=== PATIENT | female | born 1970 | race Hispanic/Latino ===

== ENCOUNTER 2024-08-28 14:43 | Emergency (ER) | payer BC ==
[~2024-08-28] VITALS: Ht 157.5 cm; Wt 75.3 kg
[2024-08-28 15:24] LABS: BASOPHILS # (AUTO) 0.06 K/uL (0.00-0.20); BASOPHILS % (AUTO) 0.7 % (0.0-5.0); EOSINOPHILS # (AUTO) 0.13 K/uL (0.00-0.70); EOSINOPHILS % (AUTO) 1.4 % (0.0-8.0); HEMATOCRIT 39.2 % (36-48); IMMATURE GRANULOCYTE ABSOLUTE 0.02 K/uL (0-1); LYMPHOCYTES % (AUTO) 43.2 % (21.0-51.0); MEAN CORPUSCULAR HEMOGLOBIN 31.1 pg (27.0-33.0); MEAN CORPUSCULAR HGB CONC 34.2 g/dL (32.0-36.0); MONOCYTES # (AUTO) 0.8 K/uL (0.1-1.0); MONOCYTES % (AUTO) 9.2 % (3.0-13.0); NEUTROPHILS # (AUTO) 4.2 K/uL (1.8-7.7); NEUTROPHILS % (AUTO) 45.3 % (40.0-77.0); PLATELET COUNT (AUTO) 239 K/uL (130-400); RED BLOOD CELL COUNT(AUTO) 4.31 MIL/uL (4.00-5.50); RED CELL DISTRIBUTION WIDTH 11.8 % (11.0-15.5); WHITE BLOOD COUNT (AUTO) 9.2 K/uL (4.8-10.8)
[2024-08-28 15:48] LABS: ALBUMIN 3.7 g/dL (3.5-5.0); BILIRUBIN,DIRECT 0.1 mg/dL (0.0-0.3); BILIRUBIN,TOTAL 0.4 mg/dL (0.2-1.0); CREATININE 0.9 mg/dL (0.5-1.0); POTASSIUM 4.1 mmol/L (3.5-5.1); TOTAL PROTEIN, SERUM 8.3 g/dL (6.0-8.3)
[2024-08-28] MEDS: INSULIN humuLIN R 100 UNIT/ML 3ML IV ONE (16:17)
[2024-08-28] MEDS: 0.9%NACL 1000ML 1,000 ML IV ONE (16:18)
--- NOTE | 2024-08-28 16:32 | HMCIMG ---
US ABDOMINAL RUQ\E\LTD HISTORY: Right upper quadrant pain COMPARISON: None TECHNIQUE: Right upper quadrant abdominal ultrasound study was performed. FINDINGS: Liver measures 14.3 cm. The visualized portion of the pancreas is within normal limits. Liver is echogenic consistent with liver parenchymal disease. No gallstone is seen. Common duct measures 3 mm. No evidence of gallbladder wall thickening is seen. Right kidney measures 9.3 x 5.2 x 5.3 cm. No hydronephrosis is seen of the right kidney. IMPRESSION: 1. No gallstones or ductal dilatation is seen. 2. No hydronephrosis is seen.
[2024-08-28 16:36] LABS: ADD UA MICROSCOPIC YES; APPEARANCE,URINE CLEAR (CLEAR); BILIRUBIN,URINE NEGATIVE (NEGATIVE); COLOR,URINE LIGHT-YELLOW (YELLOW); GLUCOSE, URINE (UA) >=1000 mg/dL (NEGATIVE); KETONES,URINE 10 mg/dL (NEGATIVE); LEUKOCYTE ESTERASE ,URINE 75 Leu/uL (NEGATIVE); NITRATE,URINE NEGATIVE (NEGATIVE); OCCULT BLOOD,URINE NEGATIVE (NEGATIVE); PROTEIN,URINE NEGATIVE (NEGATIVE); UROBILINOGEN,URINE 0.2 mg/dL (0.2-1.0)
[2024-08-28 16:39] LABS: BACTERIA,URINE RARE /HPF (None Seen); MUCUS,URINE RARE LPF (None Seen); SQUAMOUS EPITHELIAL CELL,UR RARE /HPF (0-2)
--- NOTE | 2024-08-28 16:45 | ERN ---
ED Note History of Present Illness Stated Complaint: ABD PAIN Chief Complaint: Abdominal Pain Time Seen by MD: 14:55 Time Seen by Midlevel: 15:00 Dictation: 53-year-old female with a history of hypertension and diabetes sent here for PCP's office for right upper quadrant pain rule out any cholecystitis. Patient states the pain started this morning. Denies any nausea or vomiting. Allergies: Coded Allergies: No Known Drug Allergies (Unverified Allergy, Unknown, 08/28/24) Home Meds Active Scripts Cephalexin Monohydrate (Keflex) 500 Mg Cap, 500 MG PO QID for 7 Days, #28 CAP Prov:CONSTANTINE STOREY [employer]ODUCTION MAINTENANCE MECH[employer]IC 08/28/24 Past Medical History Past Medical History: Constipation, Diabetes-Type II Surgical History: BTL, Review of System Dictation Constitutional: Negative for fever,chills, and weight loss Eyes: Negative for injury, pain,redness, and discharge ENT: Negative for injury,pain or swelling Cardiovascular: Negative for chest pain, palpitations, and edema Respiratory: Negative for shortness of breath, cough, and wheezing, Abdomen/GI: Complaining of right upper quadrant pain and epigastric pain Back: Negative for injury and pain : Negative for injury, bleeding and discharge MS/Extremity: Negative for injury and deformity Skin: Negative for rash, and discoloration Neuro: Negative for headache, weakness, numbness, tingling, and seizure Psych: Negative for suicide ideation, homicidal ideation, and hallucinations Review of Systems: was completed Initial Vital Sign VS Vital Signs Date Time Temp Pulse Resp B/P (MAP) Pulse Ox O2 Delivery O2 Flow Rate FiO2 08/28/24 14:51 98.4 77 18 127/81 99 Room Air 0 08/28/24 15:37 21 Physical Exam Dictation General: awake, alert, NAD Head/Face: Normocephalic, atraumatic Eyes: PERRL, EOMI, vision at baseline ENT: oral cavity clear, TMs clear, no signs of infection Neck: Trachea midline, supple, no nuchal rigidity Cardiovascular: RRR, normal S1/S2, No MRGs, no JVD Respiratory: CTAB, no respiratory distress, No rales or wheezes Abdomen: Soft, non-tender, non-distended, normal bowel sounds, no guarding or rebound. Skin: Warm, dry, normal turgor, no rash MS/Extremity: Pulses equal, no cyanosis, neurovascular intact, FROM Neuro: COAx4, GCS 15, strength 5/5, CN 2-12 intact, normal cerebellar exam, normal gait, Psych: Normal behavior, mood, and affect normal Results (Laboratory/Radiology) Laboratory/Radiology Laboratory Tests Test 08/28/24 15:13 08/28/24 15:41 White Blood Count 9.2 K/uL (4.8-10.8) Red Blood Count 4.31 MIL/uL (4.00-5.50) Hemoglobin 13.4 g/dL (12.0-16.0) Hematocrit 39.2 % (36-48) Mean Corpuscular Volume 91.0 fL (79-99) Mean Corpuscular Hemoglobin 31.1 pg (27.0-33.0) Mean Corpuscular Hemoglobin Concent 34.2 g/dL (32.0-36.0) Red Cell Distribution Width 11.8 % (11.0-15.5) Platelet Count 239 K/uL (130-400) Mean Platelet Volume 12.7 fL (7.5-10.5) H Immature Granulocyte % (Auto) 0.2 % (0-1) Neutrophils (%) (Auto) 45.3 % (40.0-77.0) Lymphocytes (%) (Auto) 43.2 % (21.0-51.0) Monocytes (%) (Auto) 9.2 % (3.0-13.0) Eosinophils (%) (Auto) 1.4 % (0.0-8.0) Basophils (%) (Auto) 0.7 % (0.0-5.0) Neutrophils # (Auto) 4.2 K/uL (1.8-7.7) Lymphocytes # (Auto) 4.0 K/uL (1.0-4.8) Monocytes # (Auto) 0.8 K/uL (0.1-1.0) Eosinophils # (Auto) 0.13 K/uL (0.00-0.70) Basophils # (Auto) 0.06 K/uL (0.00-0.20) Absolute Immature Granulocyte (auto 0.02 K/uL (0-1) Nucleated Red Blood Cells 0.0 % (0.0-0.19) Sodium Level 134 mmol/L (136-145) L Potassium Level 4.1 mmol/L (3.5-5.1) Chloride Level 97 mmol/L (101-111) L Carbon Dioxide Level 31 mmol/L (21-32) Blood Urea Nitrogen 18 mg/dL (7-18) Creatinine 0.9 mg/dL (0.5-1.0) Glomerular Filtration Rate Calc 77 mL/min (>90) Random Glucose 515 mg/dL (70-105) *H Total Calcium 9.0 mg/dL (8.5-10.1) Total Bilirubin 0.4 mg/dL (0.2-1.0) Direct Bilirubin 0.1 mg/dL (0.0-0.3) Aspartate Amino Transf (AST/SGOT) 17 U/L (10-37) Alanine Aminotransferase (ALT/SGPT) 28 U/L (12-78) Alkaline Phosphatase 157 U/L (50-136) H Total Protein 8.3 g/dL (6.0-8.3) Albumin 3.7 g/dL (3.5-5.0) Lipase 39 U/L (16-77) Urine Color LIGHT-YELLOW (YELLOW) Urine Appearance CLEAR (CLEAR) Urine pH 5.0 (5.0-8.0) Urine Specific [place] 1.036 (1.001-1.031) Urine Protein NEGATIVE mg/dL (NEGATIVE) Urine Glucose (UA) >=1000 mg/dL (NEGATIVE) H Urine Ketones 10 mg/dL (NEGATIVE) H Urine Occult Blood NEGATIVE (NEGATIVE) Urine Nitrate NEGATIVE (NEGATIVE) Urine Bilirubin NEGATIVE mg/dL (NEGATIVE) Urine Urobilinogen 0.2 mg/dL (0.2-1.0) Urine Leukocyte Esterase 75 Cal/uL (NEGATIVE) H Urine RBC 6-10 /HPF (0-1) H Urine WBC 11-25 /HPF (0-1) H Urine Squamous Epithelial Cells RARE /HPF (0-2) Urine Bacteria RARE /HPF (None Seen) Labs Reviewed?: Yes EKG Comment: EKGs done at 4:48 p.m.. Sinus rhythm at a rate of 73. No STEMI interpreted by MARIE BENTLEY. Ultrasound Comment: [place] [id number] [place] [id number] IMAGING REPORT Signed PATIENT: VENKAT CARROLL MR#: [id number] : 1970 SEX: F AGE: 53 LOCATION: [facility] ORDER 03 STATUS: REG ER REPORT#: [id number] SERVICE 03 REASON: ruq pain, n/v ORDERING PHYSICIAN: CONSTANTINE STOREY NP PROCEDURE: ABDRUQLTD - US ABDOMINAL RUQ\LTD US ABDOMINAL RUQ\E\LTD HISTORY: Right upper quadrant pain COMPARISON: None TECHNIQUE: Right upper quadrant abdominal ultrasound study was performed. FINDINGS: Liver measures 14.3 cm. The visualized portion of the pancreas is within normal limits. Liver is echogenic consistent with liver parenchymal disease. No gallstone is seen. Common duct measures 3 mm. No evidence of gallbladder wall thickening is seen. Right kidney measures 9.3 x 5.2 x 5.3 cm. No hydronephrosis is seen of the right kidney. IMPRESSION: 1. No gallstones or ductal dilatation is seen. 2. No hydronephrosis is seen. DICTATED BY: CHRISTINE MINOR MD DATE: 08/28/24 1627 ELECTRONICALLY SIGNED BY: CHRISTINE MINOR MD DATE: 08/28/24 1632 ED Course ED Course Orders Procedure Category Date Status Time Cbc With Differential LAB 08/28/24 Complete 15:04 Basic Metabolic Panel LAB 08/28/24 Complete 15:04 Lipase LAB 08/28/24 Complete 15:04 Hepatic Function Panel LAB 08/28/24 Complete 15:04 Us Abdominal Ruq\Ltd US 08/28/24 Resulted 15:04 Urinalysis Profile LAB 08/28/24 Complete 15:48 0.9%Nacl 1000ml (Ns PHA 08/28/24 Complete 1000ml) 16:30 Insulin Regular, PHA 08/28/24 Complete Human 3ml (Humulin R 16:30 Culture Urine JOSE GUADALUPE 08/28/24 Complete 16:36 12 Lead Ekg Tracing- EKG 08/28/24 Resulted Technical 16:45 Ceftriaxone 1g Vial PHA 08/28/24 Complete (Rocephine 1g Inj) 17:03 Current Medications Medications (Trade) Dose Ordered Sig/Ramon Route PRN Reason Start Time Stop Time Status Last Admin Dose Admin Ceftriaxone Sodium (ROCEphine 1G INJ) 1 gm ONCE STAT IVPB 08/28/24 17:03 08/28/24 17:06 DC 08/28/24 17:12 Insulin Human Regular (humuLIN R 100 UNIT/ML 3ML) 7 unit ONCE ONCE IV 08/28/24 16:30 08/28/24 16:31 DC 08/28/24 16:17 Sodium Chloride 1,000 ml @ 0 mls/hr Q0M ONCE IV 08/28/24 16:30 08/28/24 16:31 DC 08/28/24 16:18 Vital Signs Date Time Temp Pulse Resp B/P (MAP) Pulse Ox O2 Delivery O2 Flow Rate FiO2 08/28/24 17:15 98.4 64 16 104/71 99 Room Air* 0 21 08/28/24 15:37 70 16 124/63 99 Room Air* 0 21 08/28/24 14:51 98.4 77 18 127/81 99 Room Air 0 Medical Decision Making MDM MDM: 53-year-old female with a history of hypertension and diabetes sent here for PCP's office for right upper quadrant pain rule out any cholecystitis. Patient states the pain started this morning. Denies any nausea or vomiting. Chemistry unremarkable. Only hyperglycemia of greater than 500. Serum carbon dioxide within normal range. No suspicion for DKA. Gave fluids and 7 units of insulin. Blood sugar nose in the 300s. Patient states she has has not been compliant with her medications. No transaminitis, lipase within normal range. CBC shows no leukocytosis no anemia, no thrombocytopenia. Ultrasound shows no gallbladder stones. Discussed findings with the patient. Discussed with the patient needs to be compliant with her medications and follow up with her PCP in 1-2 days. Differential diagnosis: Cholecystitis, pancreatitis, biliary colic, gastritis, PUD Rationale: Tests considered and ordered secondary to shared decision making include: Previous outside records reviewed: Old ER visits. Risk of complication and/or morbidity or mortality of patient management: None Medications-Per medication reconciliation Need for hospitalization: Patient does not meet criteria for hospitalization. Need for emergency major/minor surgery: No There are no social concerns with this patient. Prescription drug management Prescriptions will include symptomatic care Patient's prior external medical records from other ER visits were reviewed by me as indicated. Prior testing and results from previous visits were reviewed. Prior tests were taken into account with medical decision making and resource utilization, independent historian/historians were used to obtain complete medical history. I independently interpreted the test that were performed, results were reviewed by me and considered findings on radiology if ordered. Medical management and examination interpretation discussions were had by me with other qualified healthcare professionals as indicated for the patient's care. DX & DISP Disposition: Discharge Departure Impression: Primary Impression: Hyperglycemia Additional Impressions: Gastritis, UTI (urinary tract infection) Condition: Stable Scripts Cephalexin Monohydrate (Keflex) 500 Mg Cap 500 MG PO QID for 7 Days, #28 CAP Prov: CONSTANTINE STOREY NP 08/28/24 Additional Instructions: Please follow up with your primary doctor. Stick to a diabetic diet a sugar was greater than 500. Start taking your home medications. Referrals: JADYN FIGUEROA MD (PCP) Time of Disposition: 17:06 I have reviewed the case, and I agree with, Diagnosis and Plan CONSTANTINE STOREY NP Aug 28, 2024 16:45 NIDIA DONOVAN DO Aug 31, 2024 03:53
--- NOTE | 2024-08-28 16:47 | NUR ---
FSBG RECHECKED AT 1647. READING 305
[2024-08-28] MEDS ORDERED: CEPH500B PO (17:07)
[2024-08-28] MEDS: cefTRIAXone 1G VIAL IVPB STA (17:12)
[2024-08-28 17:15] VITALS: BP 104/71; PULSE 64; RESP 16; TEMP 98.4; O2SAT 99
--- NOTE | 2024-08-29 10:29 | EKG ---
[facility] Test Date: 2024-08-28 Test Time: 16:48:39 Pat Name: VENKAT CARROLL Department: [facility] Room: Gender: F Route Jumper: [id number] : 1970 Requested By: CONSTANTINE STOREY Order Number: [id number] Reading MD: Vanessa Burris Measurements Intervals [place] Rate: 73 P: 38 ID: [id number] QRS: 43 QRSD: 79 T: 28 QT: 439 QTc: 484 Interpretive Statements Sinus rhythm No previous ECG available for comparison Electronically Signed On 08-29-2024 13:21:42 CDT by Vanessa Burris Please click the below link to view image of tracing.
== END 2024-08-28 17:23 | disposition home or self-care (01) ==
LOC: EDH 14:43
DX: E11.65 Type 2 diabetes mellitus with hyperglycemia (principal); K29.70 Gastritis, unspecified, without bleeding; N39.0 Urinary tract infection, site not specified; Z98.51 Tubal ligation status
CPT/HCPCS: 99284; 96374; 76705; 96361; 96375; 80076; 80048; 83690; 85025; 87086 ×2; 87186; 81001; 36415; 93005; J1815; J0696

== ENCOUNTER 2025-01-25 22:08 | Emergency (ER) | payer SELFPAY ==
[~2025-01-25] VITALS: Ht 157.5 cm; Wt 75.7 kg
[~2025-01-25 22:08] MED LIST: CEPH500B PO
--- NOTE | 2025-01-25 22:20 | ERN ---
ED Note History of Present Illness Stated Complaint: C/O ABD W/N X V, HEADACHE, RINGING IN EARS,DIZZINE Chief Complaint: Multiple Complaints Time Seen by MD: 22:13 Dictation: Patient is a 54-year-old female coming in with flu-like symptoms to include headache nausea vomiting intermittently for 2-3 days. She has also had ringing in the ears in generalized body weakness for the last 3-4 days. No fever no chills. She states she has not been to see her primary care doctor. Allergies: Coded Allergies: No Known Drug Allergies (Unverified Allergy, Unknown, 08/28/24) Home Meds Active Scripts Cephalexin Monohydrate (Keflex) 500 Mg Cap, 500 MG PO QID for 7 Days, #28 CAP Prov:CONSTANTINE STOREY CNP 08/28/24 Past Medical History Past Medical History: Constipation, Diabetes-Type II Surgical History: BTL, RN Note Reviewed/Agreed w/PFSH: Yes Review of System Dictation CONSTITUTIONAL: Negative except for HPI generalized body weakness fever HEAD/FACE: Negative except for HPI EENT: Negative except for HPI RESPIRATORY: Negative except for HPI GASTROINTESTINAL/ABDOMINAL: Negative except for HPI nausea vomiting GENITOURINARY: Negative except for HPI MUSCULOSKELETAL: Negative except for HPI malaise INTEGUMENTARY: Negative except for HPI NEUROLOGICAL/PSYCH: Negative except for HPI frontal headache HEMATOLOGIC/LYMPHATIC: Negative except for HPI All Systems Negative, Except as noted above. 13 point review of systems assessed and all negative except for above. Initial Vital Sign VS Vital Signs Date Time Temp Pulse Resp B/P (MAP) Pulse Ox O2 Delivery O2 Flow Rate FiO2 01/25/25 22:12 98.1 109 20 118/79 99 Room Air Physical Exam Dictation A normal Vital Signs reviewed General Appearance: Alert, oriented x 3, n mi acute distress, well developed, nourished. Head and Face: non-traumatic. Eyes: PERRL, pink conjunctivas, eyelid no trauma, anterior chamber with arcus senilis. Ears: Pinnas intact and no signs of trauma or erythema ear canals clear and no discharge TM no erythema Nose: No discharge, no bleeding. Oropharynx: Mouth normal, tongue pink, pharynx clear,no erythema, tonsils no exudates, no abscesses noted, mucous membrane moist Neck: Supple, non-tender, no thyromegaly, no masses, no JVD, no bruits Breast:Deferred Chest:No tenderness, no crepitus, no paradoxical movement, no retractions Lungs:Clear, well-ventilated, symmetric, no rales, no wheezing, no rhonchi, no stridor, good breath sounds bilaterally Heart: Regular rate, regular rhythm, no murmur, no gallops Vascular: no peripheral edema, Abdomen: Soft, positive bowel sounds, nondistended, no guarding, nontender, no rebound, no masses no hepatomegaly, no splenomegaly, no Jo's sign, no hernias. No focal tenderness Rectal: Deferred Genital: Deferred Neurological: Normal speech, motor function intact, sensory function intact NIH is 0 Musculoskeletal: Neck nontender, full range of motion, back nontender, full range of motion, Extremities: nontender, full range of motion Skin: Color pink, dry, no turgor, no rash, no lacerations, no abrasions, no contusions. Lymphatic: Deferred Results (Laboratory/Radiology) Laboratory/Radiology Laboratory Tests Test 01/25/25 22:13 Group A Streptococcus Rapid positive (NEGATIVE) *A Labs Reviewed?: Yes ED Course ED Course Orders Procedure Category Date Status Time Covid19 (Sars Antigen LAB 01/25/25 In Process Rapid) 22:17 Rapid (Group A Strep) LAB 01/25/25 In Process 22:17 Influenza Type A & B, LAB 01/25/25 In Process Rapid 22:17 Acetaminophen 500mg PHA 01/25/25 Complete Tab (Tylenol 500mg T 22:30 Ondansetron Odt 4mg PHA 01/25/25 Complete Tab (Zofran 4mg Odt) 22:30 Amox/Clav 875/125mg PHA 01/25/25 Verified Tab (Augmentin 875-1 23:00 Current Medications Medications (Trade) Dose Ordered Sig/Ramon Route PRN Reason Start Time Stop Time Status Last Admin Dose Admin Acetaminophen (TYLenol 500MG TAB) 1,000 mg ONCE ONCE PO 01/25/25 22:30 01/25/25 22:31 DC 01/25/25 22:52 Ondansetron HCl (zoFRAN 4MG ODT) 4 mg ONCE ONCE SL 01/25/25 22:30 01/25/25 22:31 DC 01/25/25 22:52 Vital Signs Date Time Temp Pulse Resp B/P (MAP) Pulse Ox O2 Delivery O2 Flow Rate FiO2 01/25/25 22:12 98.1 109 20 118/79 99 Room Air 2300/PATIENT POSITIVE FOR STREP B. SHE WILL BE GIVEN [id number] NOW SENT HOME WITH PRESCRIPTION AND TOLD TO FOLLOW UP WITH HER PRIMARY CARE DOCTOR IN THE NEXT 1-2 DAYS. Medical Decision Making MDM MEDICAL DECISION-MAKING BASED ON SWABS FOR FLU COVID AND STREP. PATIENT STREP A POSITIVE GIVEN [id number] IN THE EMERGENCY ROOM DISCHARGED HOME WITH SAME PRESCRIPTION FOR THE NEXT 10 DAYS TOLD SEE HER PRIMARY CARE DOCTOR TOMORROW OR THE NEXT DAY FOR MANAGEMENT DX & DISP Disposition: Discharge Departure Impression: Primary Impression: Acute streptococcal tonsillitis Condition: Stable Scripts Amoxicillin/Potassium Clav (Amox Tr-K Clv 875-125 mg Tab) 875 Mg-125 Mg Tablet 1 EACH PO BID for 5 Days, #10 TAB 0 Refills Prov: NBA PADILLA 01/25/25 Additional Instructions: FOLLOW-UP WITH PRIMARY CARE PROVIDER IN 1 TO 2 DAYS. TAKE MEDICATIONS DIRECTED HERE IN THE EMERGENCY ROOM. OKAY TO CONTINUE HOME MEDICATIONS UNLESS OTHERWISE DISCUSSED DURING YOUR VISIT IN THE EMERGENCY ROOM TODAY. RETURN TO YOUR NEAREST EMERGENCY ROOM IF SYMPTOMS WORSEN OR IF THERE IS NO IMPROVEMENT. CALL 911 IF YOU NEED IMMEDIATE ASSISTANCE. TAKE TYLENOL OR MOTRIN [id number] NEEDED AND IF NO CONTRAINDICATIONS ARE PRESENT. INCREASE ORAL HYDRATION. A WOUND CULTURE OR URINE CULTURE WAS ORDERED HERE IN THE EMERGENCY ROOM DEPARTMENT PLEASE FOLLOW-UP WITH PRIMARY CARE PROVIDER AND ADVISE THEM TO GET REPEAT PORTS FROM OUR FACILITY. IF YOU HAD ANY ERNIE WRAP/SPLINTS THAT WERE APPLIED HERE, PLEASE DO NOT REMOVE THEM UNTIL YOU SEE YOUR PRIMARY CARE OR SPECIALTY. TAKE AUGMENTIN DIRECTED TWICE A DAY UNTIL GONE. TYLENOL OR MOTRIN [id number] NEEDED FOR FEVER PAIN. FOLLOW UP WITH THE YOUR PRIMARY CARE DOCTOR IN THE NEXT 1-2 DAYS FOR YOUR STREP THROAT FOLLOW UP WITH THE SURGEON AT [facility] FOR YOUR FOOT. Referrals: JADYN FIGUEROA MD (PCP) Time of Disposition: 23:02 I have reviewed the case, and I agree with, Diagnosis and Plan NBA PADILLA Jan 25, 2025 22:20
[2025-01-25 22:59] LABS: RAPID GROUP A STREP positive (NEGATIVE)
[2025-01-25] MEDS ORDERED: AMOX1TAB16 PO (23:03)
[2025-01-25 23:06] LABS: COVID19 (SARS ANTIGEN RAPID) PRESUMPTIVE NEGATIVE (NEGATIVE); INFLUENZA TYPE A Negative For Type A (NEGATIVE); INFLUENZA TYPE B Negative For Type B (NEGATIVE)
[2025-01-25] MEDS: AMOX/CLAV 875/125MG TAB PO STA (23:17)
[2025-01-25 23:21] VITALS: BP 106/54; PULSE 102; RESP 18; TEMP 98; O2SAT 100
== END 2025-01-25 23:39 | disposition home or self-care (01) ==
LOC: EDH 22:08
DX: J03.00 Acute streptococcal tonsillitis, unspecified (principal); E11.9 Type 2 diabetes mellitus without complications; Z20.822 Contact with and (suspected) exposure to COVID-19; Z98.51 Tubal ligation status
CPT/HCPCS: 87426; 87804; 87880; 99284